=== PATIENT | female | born 1965 | race Caucasian/White ===

== ENCOUNTER 2016-10-28 12:58 | Outpatient (CLI) | payer OTHER | END 2016-10-28 12:59 | disposition home or self-care (01) | DX: R10.32 Left lower quadrant pain (principal) ==

== ENCOUNTER 2016-11-10 15:38 | Outpatient (CLI) | payer OTHER | END 2016-11-10 15:39 | disposition home or self-care (01) | DX: Z01.818 Encounter for other preprocedural examination (principal); M12.871 Other specific arthropathies, not elsewhere classified, right ankle and foot ==

== ENCOUNTER 2020-03-26 13:06 | Outpatient (CLI) | payer OTHER ==
--- NOTE | 2020-03-27 09:34 | Mammography Report ---
BILATERAL DIGITAL SCREENING MAMMOGRAM 3D/2D: 03/26/2020 CLINICAL: Routine screening. Comparison is made to exam dated: 06/20/2016 mammogram - [facility]. There are sc attered fibroglandular elements in both breasts. No significant masses, calcifications, or other findings are seen in either breast. There has been no significant interval change. IMPRESSION: NEGATIVE There is no mammographic evidence of malignancy. A 1 year screening mammogram is recommended. This exam was interpreted at Station ID: [id number]. NOTE: For mammograms, a report in lay terms will be sent to the patient. Approximately 15% of breast malignancies will not be visualized mammographically. In the management of a palpable breast mass, a negative mammogram must not discourage biopsy of a clinically suspicious lesion. Electronically Signed By: Jannet gautam/roxie:03/26/2020 15:58:30 ACR BI-RADS Category 1: Negative 3341F PARENCHYMAL PATTERN: (A) - The breast(s) demonstrate(s) scattered fibroglandular densities. BI-RADS CATEGORY: (1) - 1 RECOMMENDATION: (ANNUAL) - Recommend routine annual screening mammography. [id number] 1 year screening LATERALITY: (B)
== END 2020-03-26 13:07 | disposition home or self-care (01) ==
LOC: DI 13:06
DX: Z12.31 Encounter for screening mammogram for malignant neoplasm of breast (principal)
CPT/HCPCS: 77063; 77067

== ENCOUNTER 2021-11-18 09:40 | Outpatient (CLI) | payer OTHER ==
--- NOTE | 2021-11-19 10:25 | Mammography Report ---
BILATERAL DIGITAL SCREENING MAMMOGRAM 3D/2D: 11/18/2021 CLINICAL: Routine screening. Comparison is made to exams dated: 03/26/2020 mammogram and 06/20/2016 mammogram - [facility]. There are scattered fibroglandular elements in both breasts. No significant masses, calcifications, or other findings are seen in either breast. There has been no significant interval change. IMPRESSION: NEGATIVE There is no mammographic evidence of malignancy. A 1 year screening mammogram is recommended. This exam was interpreted at Station ID: [id number]. NOTE: For mammograms, a report in lay terms will be sent to the patient. Approximately 15% of breast malignancies will not be visualized mammographically. In the management of a palpable breast mass, a negative mammogram must not discourage biopsy of a clinically suspicious lesion. Electronically Signed By: Shabbir Singh M.D. slc/penrad:11/18/2021 10:17:00 ACR BI-RADS Category 1: Negative 3341F PARENCHYMAL PATTERN: (A) - The breast(s) demonstrate(s) scattered fibroglandular densities. BI-RADS CATEGORY: (1) - 1 RECOMMENDATION: (ANNUAL) - Recommend routine annual screening mammography. [id number] 1 year screening LATERALITY: (B)
== END 2021-11-18 09:41 | disposition home or self-care (01) ==
LOC: DI.N 09:40
DX: Z12.31 Encounter for screening mammogram for malignant neoplasm of breast (principal)